=== PATIENT | female | born 1985 | race Caucasian/White ===

== ENCOUNTER 2024-11-18 14:38 | Inpatient (IN) | payer OTHER ==
[2024-11-18 15:23] VITALS: BMI 18.8
[2024-11-18] MEDS ORDERED: LOPERAMIDE HCL 2 MG CAPSULE PO PRN (15:30)
[2024-11-18] MEDS ORDERED: MAGNESIUM HYDROX 2400MG/30ML ORAL SUSPENSION 30 ML CUP PO PRN (15:30)
[2024-11-18] MEDS ORDERED: IBUPROFEN 400 MG TABLET (FP) PO PRN (15:30)
[2024-11-18] MEDS ORDERED: NALOXONE (NARCAN) HCL 4 MG/0.1 ML SPRAY NS PRN (15:30)
[2024-11-18] MEDS ORDERED: POLYETHYLENE GLYCOL (HEALTHYLAX) 3350 17 GM PACKET PO PRN (15:30)
[2024-11-18] MEDS ORDERED: BENZOCAINE/MENTHOL (CHLORASEPTIC ) LOZENGE MM PRN (15:30)
[2024-11-18] MEDS ORDERED: guaiFENesin 600 MG TABLET.ER (FP) PO PRN (15:30)
[2024-11-18] MEDS ORDERED: BENZONATATE 200 MG CAPSULE PO PRN (15:30)
[2024-11-18] MEDS: PRENATAL VITAMINS W/ FOLIC ACID TABLET (FP) PO SCH (18:47)
[2024-11-18] MEDS: TUBERCULIN PPD 5 TU/0.1ML SYRINGE (IN PATIENT USE ONLY) ID ONE (19:27)
[2024-11-18] MEDS: THIAMINE 100 MG TABLET PO SCH (22:26)
[2024-11-18] MEDS: MELATONIN 5 MG TABLETS PO SCH (22:27)
[2024-11-19] MEDS: methaDONE HCL 40 MG DISPERSABLE TABLET PO SCH (08:11)
[2024-11-19] MEDS: NICOTINE 14 MG/24 HOURS TOPICAL PATCH TD SCH (09:22)
[2024-11-19 12:48] LABS: HEMATOCRIT 36.2 % (34.1-44.9); HEMOGLOBIN 11.4 g/dL (11.2-15.7); MCHC 31.5 g/dl (32.2-35.5); MEAN PLT VOLUME 10.8 fl (9.4-12.3); PLATELET COUNT 253 x10^3/uL (182-369)
[2024-11-19 12:59] LABS: CHLORIDE 106 mmol/L (98-107); POTASSIUM 4.1 mmol/L (3.5-5.1); SODIUM 140 mmol/L (136-145)
[2024-11-19 13:07] LABS: CALCIUM 8.9 mg/dL (8.5-10.1)
[2024-11-19 13:08] LABS: ALBUMIN 2.8 g/dl (3.4-5.0); ANION GAP 5 mmol/L (4-13); BLOOD UREA NITROGEN 18.9 mg/dL (7-18); CO2 29 mmol/L (21-32); GLUCOSE,RANDOM 112 mg/dL (74-106)
[2024-11-19 13:11] LABS: CREATININE 0.9 mg/dL (0.55-1.3); SGOT/AST 25 U/L (15-37); SGPT/ALT 24 U/L (13-61)
[2024-11-19 13:12] LABS: TOT PROT 6.2 g/dl (6.4-8.2)
[2024-11-19 13:14] LABS: ALK PHOS 67 U/L (45-117); BILIRUBIN,TOTAL 0.1 mg/dL (0.2-1)
[2024-11-19 13:39] LABS: SYPHILIS W/ RPR CONF NON-REACTIVE (NONREACTIVE)
[2024-11-19 14:09] LABS: HCV DIAGNOSTIC IN-HOUSE W/RFLX NON-REACTIVE (NONREACTIVE)
[2024-11-19 17:13] LABS: PH,URINE 6.5 (5.0-8.0); URINE APPEARANCE CLOUDY; URINE BILIRUBIN NEGATIVE (NEGATIVE); URINE COLOR YELLOW; URINE GLUCOSE (UA) NEGATIVE (NEGATIVE); URINE KETONE NEGATIVE (NEGATIVE); URINE LEUK ESTERASE NEGATIVE (NEGATIVE); URINE NITRITE NEGATIVE (NEGATIVE); URINE PROTEIN NEGATIVE (NEGATIVE); URINE UROBILINOGEN 0.2 mg/dL (0.2-1.0)
[2024-11-20] MEDS: levETIRAcetam 500 MG TABLET (FP) PO ONE (00:08)
[2024-11-20] MEDS ORDERED: levETIRAcetam 500 MG TABLET (FP) PO SCH ×3 (10:00→22:00)
[2024-11-20] MEDS ORDERED: levETIRAcetam 250 MG TABLET PO SCH (10:00)
[2024-11-20] MEDS: levETIRAcetam 500 MG TABLET (FP) PO SCH (11:03)
[2024-11-20] MEDS: GABAPENTIN 300 MG CAPSULE PO SCH (17:05)
[2024-11-20] MEDS: levETIRAcetam 250 MG TABLET PO ONE (21:25)
[2024-11-21] MEDS: levETIRAcetam 500 MG TABLET (FP) PO SCH ×2 (02:11→10:27)
[2024-11-21] MEDS: hydrOXYzine PAMOATE 25 MG CAPSULE (FP) PO PRN (10:28)
[2024-11-21] MEDS: IBUPROFEN 600 MG TABLET (FP) PO PRN (10:28)
[2024-11-21] MEDS: QUEtiapine FUMARATE 50 MG TABLET PO SCH (21:41)
[2024-11-22] MEDS: ACETAMINOPHEN 325 MG TABLET (FP) PO PRN (10:27)
[2024-11-23] MEDS: MAG HYDROX/AL HYDROX/SIMETH 30 ML UNIT-DOSE CUP PO PRN (18:39)
[2024-11-25] MEDS: GABAPENTIN 400 MG CAPSULE PO SCH (21:10)
[2024-11-25] MEDS: QUEtiapine FUMARATE 100 MG TABLET (FP) PO SCH (21:10)
[2024-11-26] MEDS: methaDONE HCL 40 MG DISPERSABLE TABLET PO SCH (08:23)
[2024-11-27 06:57] VITALS: BP 106/73; PULSE 81; RESP 17; TEMP 97.7
== END 2024-11-27 10:25 | disposition home or self-care (01) | DRG 772 ==
LOC: YASAS 14:38 → Y3NR 18:12 → Y5N 11-19 10:58
PROVIDERS: ADMIT Psychiatry & Neurology Pain Medicine; ATTEND Psychiatry & Neurology Pain Medicine
PROC: HZ42ZZZ Group Counseling for Substance Abuse Treatment, Cognitive-Behavioral (ICD-10-PCS; principal; 2024-11-18)
DX: F14.20 Cocaine dependence, uncomplicated (principal); F10.20 Alcohol dependence, uncomplicated; F13.20 Sedative, hypnotic or anxiolytic dependence, uncomplicated; F17.210 Nicotine dependence, cigarettes, uncomplicated; F31.9 Bipolar disorder, unspecified; F41.9 Anxiety disorder, unspecified; G40.909 Epilepsy, unspecified, not intractable, without status epilepticus; M54.50 Low back pain, unspecified; G89.29 Other chronic pain; Z59.02 Unsheltered homelessness
CPT/HCPCS: 36415; 80053; 80177; 80307; 81003; 83036; 85027; 86780; 86803; 93005; 93010